=== PATIENT | female | born 1990 | race Hispanic/Latino ===

== ENCOUNTER 2017-11-30 19:19 | Inpatient (IN) | payer SELFPAY ==
[2017-11-30 19:50] VITALS: BMI 29.7
[2017-11-30] MEDS ORDERED: Ondansetron HCl/PF 4 MG/2 ML Vial IVP PRN (21:31)
[2017-11-30] MEDS ORDERED: Lactated Ringer's 1,000 ML IV SCH (21:45)
[2017-11-30] MEDS ORDERED: Azithromycin 250 MG TAB PO SCH (21:45)
[2017-11-30] MEDS: metroNIDAZOLE 500 MG TAB PO SCH (22:16)
[2017-11-30] MEDS: Lactated Ringer's 1,000 ML IV SCH (22:46)
[2017-11-30] MEDS: Acetaminophen 500 MG TAB PO PRN (23:06)
[2017-11-30] MEDS: Ampicillin 2 GM in Sodium Chloride 0.9% 100 ML IVPB SCH (23:34)
--- NOTE | 2017-12-01 00:11 | ULT ---
ULTRASOUND OB LIMITED: 11/30/17 HISTORY: Incompetent cervix. COMPARISON: None. FINDINGS: The cervix is short measuring just over 1 cm. There is funneling of the internal os with the foot of the fetus extending into the internal os. Adequate amniotic fluid. The placenta is anterior. The average ultrasound age is 20 weeks, 2 days. Estimated date of delivery of 04/17/18. Estimated weight is 13 oz, 74th percentile. Biparietal diameter 4.47 cm 19 week, 4 day 19th percentile Head circumference 17.66 cm 20 week, 1 day 36th percentile Abdominal circumference 15.56 cm 20 week, 5 day 39th percentile Femur length 3.55 cm 21 week, 2 day 75th percentile Heart rate documented at 157 beats per minute. IMPRESSION: Incompetent cervix measuring approximately 1.5 cm with funneling of the internal os with the foot of the fetus extending through the internal os. CODE: CR. Sparks in l&d notified of findings at 12:10 am. POS: SHEILA
--- NOTE | 2017-12-01 01:11 | HP ---
DATE OF SERVICE: 11/30/2017 PRIMARY FILLER AND TRIMMER: Justine Burgess MD CHIEF COMPLAINT: Vaginal bleeding. HISTORY OF PRESENT ILLNESS: The patient is a 27-year-old, G1, P0 female with an intrauterine pregnan cy at 20 weeks and 2 days, presenting to labor and delivery complaining of vaginal bleeding and cramp ing. She reports that she has been having some cramping since Wednesday. She says it is in her back, s eems to be associated more with activity and movement. The patient reports it lasts about seconds at a time and is irregular. She reports when she got up today from bed, she noticed bleeding when she wiped and came here for evaluation. The patient reports she was last seen by Dr. Burgess yesterday an d had a normal visit. The patient reports that her discharge has been copious and that she describes it as very mucousy. The patient denies any recent illness, fever, fall, headache, chest pain, short ness of breath, nausea, vomiting, diarrhea. She does report constipation. Denies any new rashes. R eports low back pain, vaginal bleeding, and discharge. Denies urinary urgency or frequency. The pat ient does report a history of bacterial vaginosis prior to the . PAST MEDICAL HISTORY: Negative. PAST SURGICAL HISTORY: Negative. OBSTETRIC HISTORY: This is her first . SOCIAL HISTORY: Denies drug, alcohol, or tobacco use. ALLERGIES: No known drug allergies. MEDICATIONS: vitamins. OBSTETRICAL LABORATORY DATA: RPR is nonreactive. GC and chlamydia are negative. Hepatitis B surfac e antigen is nonreactive. HIV is nonreactive. She is rubella nonimmune. Blood type is not availabl e. REVIEW OF SYSTEMS: Per HPI. PHYSICAL EXAMINATION: VITAL SIGNS: Blood pressure 131/71, heart rate of 110, saturating 98% to 100% on room air, temperatu re 98.5, respiratory rate 18. GENERAL: She appears to be in no acute distress. She is alert and oriented, cooperative, and pleasa nt to interact with. HEAD: Normocephalic, atraumatic. LUNGS: Clear to auscultation bilaterally. HEART: Regular rate and rhythm. ABDOMEN: Soft. She does have some tenderness with deviation to the patient's right along the left i nguinal region consistent with ligament pain. She also has some SI joint tenderness to palpation. EXTREMITIES: Nontender, nonedematous. PELVIC: Vulva has some mucousy yellowish discharge seen at the perineum. On speculum exam, visible is a bulging bag. Unable to visualize cervical edges. At this point, a Del Rosario was placed and the uri nary catheter was placed, and the bladder was filled with approximately 600 mL of fluid. The patient had urge to pee, but was comfortable. On repeating the vaginal exam, the bag is still bulging and v isible and the anterior lip of the cervix was identifiable. No other parts of the cervix can be seen . On bedside ultrasound, fetus is in footling breech presentation with the feet passing through the cervical canal into the bulging bag. On report from Dr. Burgess, ultrasound was done last week showin g a closed cervix with no funneling and normal length, and fetus weighing approximately 270 grams. F etal heart tones today were in the 140s. ASSESSMENT AND PLAN: The patient is a 27-year-old primip with intrauterine at 20 weeks and 2 days with a dilated cervix and a bulging amniotic sac into the vaginal canal. The bag is fairly t aut. There does not appear to be much cervical tissue at this time available for a heroic cerclage. I did discuss the poor prognosis with the family and gave their options of expectant management vers us attempt at heroic cerclage. We did discuss the bleak prognosis with an extremely low probability of making it to viability. Dr. Justine Burgess has been notified by phone, where this patient's case was discussed. The patient and her family will be considering their options and tomorrow can give us th eir preferences. In the meantime, the patient will be placed in Trendelenburg and placed on antibiot ics for latency. Should the patient decide expectant management, the patient can likely go home coco rrow with a course of oral antibiotics. Should she desire a heroic cerclage, the patient has been gi andrew the expectation of waiting for at least 24 hours before deciding to attempt. We did discuss that there is a strong possibility that this bag given how taut it is would not tolerate manipulation wel l and may likely rupture causing delivery imminent. Dr. Burgess will be taking over management tomorr ow. Should the patient decide surgical management, we would be happy to be consulted back to be invo lved in the patient's care.
[2017-12-01] MEDS: Zolpidem Tartrate 5 MG TAB PO PRN (01:37)
[2017-12-01] MEDS: Acetaminophen 500 MG TAB PO PRN (06:26)
[2017-12-01] MEDS: Ampicillin 2 GM in Sodium Chloride 0.9% 100 ML IVPB SCH ×3 (06:33→18:04)
[2017-12-01] MEDS ORDERED: Acetaminophen/Codeine 30-300mg Tablet PO PRN (06:47)
[2017-12-01] MEDS: Lactated Ringer's 1,000 ML IV SCH ×2 (09:10→18:04)
[2017-12-01] MEDS: Butorphanol Tartrate 1 MG/ML VIAL SLOW IVP PRN ×4 (09:14→22:04)
[2017-12-01] MEDS: Azithromycin 250 MG TAB PO SCH (09:18)
[2017-12-01] MEDS: metroNIDAZOLE 500 MG TAB PO SCH ×3 (09:20→20:35)
--- NOTE | 2017-12-01 09:55 | PDOC.APC ---
Antepartum Consult S: 27 y/o G1 at 20w3d, patient of Dr. Burgess, admitted last night for incompetent cervix. She continues to have some vaginal bleeding that appears slightly watery and is having some cramping today. Pain intermittently rated 8/ 10. ROS neg for HEENT, CV, pulm, GI, , neuro, psych, skin, musculoskeletal, or constitutional symptoms other than mentioned above. O: AFVSS Gen - AAO, NAD Abd - soft, NTTP SSE - small amount of watery blood pooled in the vaginal vault. Amniotic bag appears taught with foot visible moving inside. Blood cleared out and speculum reinserted with no reaccumulation of fluid. Small blood clot present. Anterior lip of cervix visible but small. A/P: Patient and her would like to do everything possible to save the . Although blood appeared slightly watery, SROM cannot be confirmed at this time. Continue expectant management and antibiotics. Cerclage scheduled for tomorrow morning after examination by Dr. Carmona. Consents will be signed today. Pain medication ordered. Labs: Ante Labs Blood Type O POSITIVE 11/30/17 22:15
[2017-12-01] MEDS: Cyclobenzaprine 10 MG TAB PO PRN ×2 (12:40→20:54)
[2017-12-02] MEDS: Butorphanol Tartrate 1 MG/ML VIAL SLOW IVP PRN ×3 (01:20→23:22)
[2017-12-02] MEDS: Ampicillin 2 GM in Sodium Chloride 0.9% 100 ML IVPB SCH ×2 (01:20→06:10)
[2017-12-02] MEDS: Lactated Ringer's 1,000 ML IV SCH (03:36)
[2017-12-02] MEDS ORDERED: Lidocaine 1% (PF) 30 ML VIAL ONE (09:40)
[2017-12-02] MEDS ORDERED: Fentanyl 100 MCG/2 ML VIAL ONE (09:50)
[2017-12-02] MEDS ORDERED: Famotidine/PF 20 mg/2ml Vial ONE (09:50)
[2017-12-02 09:54] LABS: #Lymphocytes 1.5 thou/uL (1.20-3.40); #Neutrophils 11.1 thou/uL (1.40-6.50); %Basophils 0.1 % (0.0-1.0); %Eosinophils 0.3 % (0.0-10.0); %Neutrophils 81.6 % (42.0-75.0); Hemoglobin 10.8 g/dL (12.0-16.0); Mean Corpuscular HGB CONC 35.8 g/dL (32.0-36.0); Mean Corpuscular Hemoglobin 32.8 pg (27.0-31.0); Mean Corpuscular Volume 91.6 fL (78.0-98.0); Mean Platelet Volume 8.2 fL (7.4-10.4); Platelet Count 156 thou/uL (130-400); RBC Distribution Width 11.7 % (11.5-14.5); Red Blood Cell (RBC) Count 3.29 mill/uL (4.20-5.40); White Blood Cell (WBC) Count 13.6 thou/uL (4.8-10.8)
[2017-12-02] MEDS ORDERED: Ondansetron HCl/PF 4 MG/2 ML Vial ONE (10:50)
[2017-12-02] MEDS ORDERED: Succinylcholine Chloride 20 MG/ML 10 ml SYRINGE FS ONE (10:50)
[2017-12-02] MEDS ORDERED: Metoclopramide HCl 10 MG/2 ML VIAL ONE (10:50)
[2017-12-02] MEDS ORDERED: PROPOFOL 200 MG/20 ML VIAL ONE (10:50)
--- NOTE | 2017-12-02 14:45 | OP ---
DATE OF PROCEDURE: 12/02/2017 PREOPERATIVE DIAGNOSES: 1. Intrauterine at 20 weeks and 4 days. 2. Incompetent cervix with bulging membranes. 3. Vaginal bleeding. POSTOPERATIVE DIAGNOSES: 1. Intrauterine at 20 weeks and 4 days. 2. Incompetent cervix with bulging membranes. 3. Vaginal bleeding. PROCEDURE: Exam under anesthesia. ANESTHESIA: General. SURGEON: Bonifacio Carmona M.D. COUNTS: Correct. CONDITION: Stable to recovery room. COMPLICATIONS: None. SPECIMENS: None. INDICATIONS FOR PROCEDURE: The patient is a 27-year-old G1, P0 female with an intrauterine at 20 weeks and 4 days, who was admitted to the hospital with a diagnosis of incompetent cervix and bulging membranes. The patient after being placed on antibiotics for 24 hours was brought to the ope rating room after counseling expectant versus surgical management and the patient has opted to an att empt at a heroic cervical cerclage. The patient was counseled of the low possibility of success and also counseled the risk of rupture of membranes, labor, vaginal bleeding, infection and failure. DESCRIPTION OF PROCEDURE: The patient was taken to the operating room where she was placed under gen eral anesthesia and placed in dorsal lithotomy position in [facility]. She was prepared and drap ed in normal sterile fashion. Attention was placed vaginally with an operative speculum. The Del Rosario catheter was in place and the bladder was backfilled with approximately 500 mL of fluid. Operative s peculum was then used to examine the vaginal canal. The bulging membranes were noted to be more clos er to the introitus and more friable in appearance than the day prior. There is no palpable cervix o r visible. There were feet clearly visible at the boundaries of this amniotic sac. The decisi on at this time was then made to empty the bladder and it was noted that this amniotic sac came to th e level of the hymen with accompanying feet. Given the extent of her bulging membranes, the pr esence of parts and the vaginal bleeding that was occurring, decision at this time was to abort any attempt for cervical cerclage. The patient was taken out of lithotomy position and then taken t o recovery room in stable condition.
[2017-12-03] MEDS: Lactated Ringer's 1,000 ML IV SCH ×4 (03:32→14:33)
[2017-12-03] MEDS: Butorphanol Tartrate 1 MG/ML VIAL SLOW IVP PRN ×2 (06:00→11:38)
[2017-12-03] MEDS: Azithromycin 250 MG TAB PO SCH (08:52)
[2017-12-03] MEDS: metroNIDAZOLE 500 MG TAB PO SCH (08:52)
[2017-12-03] MEDS: Ampicillin 2 GM in Sodium Chloride 0.9% 100 ML IVPB SCH (08:53)
[2017-12-03] MEDS ORDERED: AMOXicillin 250 MG CAP PO SCH (21:00)
[2017-12-03] MEDS: Docusate 100 MG CAP PO PRN (21:17)
[2017-12-04] MEDS: Zolpidem Tartrate 5 MG TAB PO PRN (00:31)
--- NOTE | 2017-12-05 09:42 | PRG ---
DATE OF SERVICE: 12/05/2017 PRIMARY OB: Dr. Justine Burgess. HISTORY OF PRESENT ILLNESS: The patient is a 27-year-old G1, P0 female with an intrauterine pregnanc y at 21 weeks, diagnosed with incompetent cervix. The patient has been here in Labor and Delivery wi th expectant management, as the patient is very uncomfortable going home under her current situation. Yesterday, by ultrasound, it was confirmed almost incomplete fetus is in the vaginal vault with lit tle to no fluid visible. Heart rate still viable in the 140s to 150s. The patient denies this morni ng any pain, any fever, any sickness, or any bleeding. PHYSICAL EXAMINATION: VITAL SIGNS: Today, blood pressure is 111/60, heart rate of 81, respiratory rate of 16, temperature 98.6. GENERAL: She appears to be in no acute distress. She is alert and oriented and cooperative and plea anyi to interact with. ABDOMEN: Soft, nontender to palpation. EXTREMITIES: Nontender with SCDs in place. ASSESSMENT AND PLAN: The patient is a 27-year-old G1, P0 female with an intrauterine at 21 weeks with an inevitable, nonviable delivery imminent. The patient has self-induced bedrest and con tinuous Trendelenburg, as she is fearful of causing delivery of this baby. We did explain yesterday after showing her the ultrasound the gravity of her situation and was able to demonstrate the locatio n of the baby outside the uterus in the vaginal vault. Dr. Justine Burgess will be returning tomorrow an jacob will be resuming care.
[2017-12-05] MEDS: Docusate 100 MG CAP PO PRN (17:08)
[2017-12-05] MEDS: Acetaminophen 500 MG TAB PO PRN (17:17)
[2017-12-05 19:04] LABS: Chlamydia by PCR Inconclusive (NotDetected); GC by PCR Inconclusive (NotDetected)
[2017-12-05] MEDS ORDERED: Magnesium Citrate 300 ML BOT PO PRN (21:10)
[2017-12-06] MEDS ORDERED: NS / Oxytocin 40 units/1000ml 0 ML ONE (11:13)
[2017-12-06] MEDS: Misoprostol 200 MCG TAB ONE (12:02)
[2017-12-06] MEDS: Docusate 100 MG CAP PO PRN (13:29)
[2017-12-06] MEDS: Butorphanol Tartrate 1 MG/ML VIAL SLOW IVP PRN (14:32)
[2017-12-06] MEDS ORDERED: Misoprostol 200 MCG TAB ONE (14:44)
[2017-12-06] MEDS ORDERED: Misoprostol 200 MCG TAB PO SCH (15:00)
[2017-12-06] MEDS ORDERED: Fentanyl 100 MCG/2 ML VIAL ONE (15:44)
[2017-12-06] MEDS ORDERED: CEFAZOLIN 2 GM in Sodium Chloride 0.9% 100 ML IVPB SCH (15:45)
--- NOTE | 2017-12-06 15:47 | PDOC.EVN ---
Event Note - Event Note Event Note: I was called to the delivery by Dr. Burgess per parent request as discussed with Dr. Yap to confirm baby was visually consistent with stated gestational age. Mother asked if there was anything that could be done for the patient since she was now 21 weeks. We discussed that at 21 weeks the lungs, kidneys and other organs are underdeveloped and would not be compatible with watermaster survival. I explained that the baby still had a heartbeat and would likely be born moving and trying to breath and this was to be expected. Dr. Burgess planned to place the baby directly onto mom's abdomen after delivery. I asked if mom wanted a account executive key accounts or beet worker present and the hospital official was called. At delivery visualization demonstrated an extremely premature baby with thin, gelatinous skin, prominent veins and what appeared to be fused eyes. I let both parents and Dr. Burgess know that the baby's physical appearance by visualization only was consistent with a previable fetus at the stated gestational age.
[2017-12-06] MEDS ORDERED: CEFAZOLIN/Water 2 GM/20 ML SYRINGE SLOW IVP SCH (16:00)
[2017-12-06] MEDS ORDERED: Ondansetron HCl/PF 4 MG/2 ML Vial IVP PRN ×2 (17:08→18:56)
[2017-12-06] MEDS ORDERED: Promethazine HCl 25 MG/ML VIAL SLOW IVP PRN (17:08)
[2017-12-06] MEDS ORDERED: Promethazine HCl 25 MG/ML VIAL IM PRN (17:08)
[2017-12-06 17:32] LABS: Hemoglobin 8.9 g/dL (12.0-16.0)
[2017-12-06] MEDS ORDERED: HYDROcodone/Acetaminophen 5/325 mg Tablet PO PRN ×2 (18:56)
[2017-12-06] MEDS ORDERED: Tranexamic Acid 1,000 MG in Sodium Chloride 0.9% 250 ML 250 ML IVPB SCH (18:56)
[2017-12-06] MEDS ORDERED: Bisacodyl 10 MG SUPP PR PRN (18:56)
[2017-12-06] MEDS ORDERED: Preparation H Ointment 28 GM TUBE PR PRN (18:56)
[2017-12-06] MEDS ORDERED: Adacel (T-DAP) 0.5 ML VIAL IM ONE (18:56)
[2017-12-06] MEDS ORDERED: Milk Of Magnesia 30 ML UDCUP PO PRN (18:56)
[2017-12-06] MEDS ORDERED: NS / Oxytocin 40 units/1000ml 1,000 ML IV SCH (18:56)
[2017-12-06] MEDS: Docusate Calcium (SURFAK) 240 MG CAP PO SCH (21:20)
[2017-12-06] MEDS: Tranexamic Acid 650 MG TAB PO SCH (21:24)
[2017-12-06] MEDS: Ibuprofen 800 MG TAB PO SCH (22:00)
--- NOTE | 2017-12-06 23:48 | OP ---
DATE OF OPERATION: 12/06/2017 TIME OF SERVICE: 1630 hours. PREOPERATIVE DIAGNOSES: A 20-week incompetent cervix rupture of membranes, spontaneous vaginal deliv adam with retained placenta. POSTOPERATIVE DIAGNOSES: A 20-week incompetent cervix rupture of membranes, spontaneous vaginal deli very with retained placenta. PROCEDURE: Exam under anesthesia and D&C . SURGEON: Bart Sauceda M.D. ANESTHESIA: General endotracheal, Joel Ghosh M.D. ESTIMATED BLOOD LOSS: 400 mL intraoperative, approximately 750-800 preoperatively, estimated total b lood loss including delivery 6828-1224 mL. DRAINS: Del Rosario to gravity. MEDICATIONS: Two grams Ancef presurgical. DVT PROPHYLAXIS: SCDs. OPERATIVE FINDINGS: 1. Placenta noted at the edge of dilated cervix removed with gentle traction. 2. Sharp curettings, large curette with small amount of retained placental membrane. 3. No evidence of uterine perforation. 4. Much reduced bleeding consistent with normal state at the end of the procedure. DISPOSITION: To the recovery room in good condition. DESCRIPTION OF OPERATIVE PROCEDURE: The patient was taken to the operating room where general endotr acheal anesthesia without difficulty. She was prepped and draped in candy canes. Weighted speculum placed in the vagina and right angle retractor placed anteriorly. Her bladder was drained with a Fol ey catheter. Large amount of clot was encountered in the vagina which was included in the estimated blood loss for the procedure. Once this was suctioned out, the placenta was recognized and grasped w ith two ring forceps with a steady gentle traction. It was removed and what seemed to be intact l[place] er and sent for pathology. The cervix was grasped at 12:00 using a ring forceps gently and using a [employer]ha [employer] curette, the uterus was scraped circumferentially, especially at the 3-6 o'clock position , significant amount of membranes and a small amount of tissue was encountered and removed. This was continued circumferentially until there was no further removal of membranes, bleeding, decreased sig nificantly after this. Ring forceps was removed from the cervix and no bleeding was noted. Speculum and retractor were removed. The Del Rosario was continued. The patient was awakened, extubated, and take n to the recovery room in good condition. In the recovery room, the patient will receive a hematocrit to see where she stands now. We will jeremy n on repeating that in the morning. We will go ahead and type and cross the patient for one unit, sh e may need a unit of PRBCs. We will administer 1 gram of TXA, IV piggyback in recovery room and then initiate oral TXA overnight. We will continue quantitative blood loss measurement on the pediatric floor where the patient will be going and this was communicated to the nursing staff. Ope rative findings were communicated with Dr. Justine Burgess.
--- NOTE | 2017-12-07 00:24 | PRG ---
DATE OF SERVICE: 12/06/2017 TIME OF SERVICE: 1540 SUBJECTIVE: Patient is now approximately 2.5 to 3 hours post-delivery. She received Cytotec per rec ashley as well as orally. The umbilical cord avulsed at approximately 1430. On exam, her cervix was st ill dilated to approximately 4-5 cm, placenta could be palpated; however, I cannot tease it out with ring forceps or a digital exam. The patient had EBL of approximately 750-800, post-delivery. PHYSICAL EXAMINATION: Vital signs are stable with pulses elevated at 105, blood pressure is 96/58. LABORATORY DATA: Starting hematocrit was 30.2%. IMPRESSION: Retained products of conception/placenta status post second trimester . PLAN: We will proceed to the OR with a general anesthetic and Ancef and sequential compression devic es for exam under anesthesia with D&C of retained placenta. The patient's care plan discussed with Dr. Justine Burgess, the patient's primary obstetric provider.
[2017-12-07] MEDS ORDERED: Zolpidem Tartrate 5 MG TAB PO PRN (01:32)
[2017-12-07 05:42] LABS: Hemoglobin 7.9 g/dL (12.0-16.0); Mean Corpuscular Hemoglobin 30.4 pg (27.0-31.0); Mean Platelet Volume 7.3 fL (7.4-10.4); Platelet Count 184 thou/uL (130-400); RBC Distribution Width 13.2 % (11.5-14.5); White Blood Cell (WBC) Count 12.5 thou/uL (4.8-10.8)
[2017-12-07] MEDS: Ibuprofen 800 MG TAB PO SCH (06:09)
[2017-12-07] MEDS ORDERED: Ferrous Sulfate 325 MG TAB PO SCH (08:00)
[2017-12-07] MEDS: Docusate Calcium (SURFAK) 240 MG CAP PO SCH (08:43)
[2017-12-07] MEDS: Tranexamic Acid 650 MG TAB PO SCH (08:43)
[2017-12-07 09:22] VITALS: BP 99/56; TEMP 98
--- NOTE | 2017-12-07 10:21 | DN ---
DATE OF DELIVERY: 12/06/2017 DIAGNOSIS: A 21 week 1 day intrauterine in labor secondary to incompetent cervix with a no nviable, but live baby. PROCEDURE IN DETAIL: The patient had been admitted on 11/30/2017 complaining of some small amount of vaginal bleeding. On speculum exam, it was noted that her cervix was completely dilated with a bulg ing bag. The patient had been placed in Trendelenburg started on IV antibiotics, IV fluids, and allo wed time to rest. Noted she is having no minimal bleeding and no further complaints or pain. After approximately 24 hours with extensive counseling, the patient regarding the option, she was taken to the operating room by Dr. Carmona with attempts to place a cerclage, but noted that the cervix was mi nimal in amount and unable to complete the surgery, so subsequently transferred back to [facility] and options have been discussed. The patient opted for complete bed rest. Antibiotics had bee n discontinued. She continued to do very well and remained afebrile, although she did continue to lomax ve some small amount of bright red bleeding which was then followed by some watery type reddish disch arge. On speculum exam, it was noted that she seemed to be having some leakage of fluid through the amniotic membranes, although there was no actual rupture seen and the baby's feet were visible in the amniotic sac bulging into the vaginal canal. All of this has been discussed extensively with the clive khanna as well as the fact that the baby is nonviable at this time and options were discussed with her in the presence of the hospital manager as well as myself on multiple occasions with full family and ronald powers present. On 12/05/2017, the patient had continued to have some leakage of fluid and an ultraso und was performed by Dr. Carmona, which noted minimal fluid in the amniotic sac with the entire baby in the amniotic sac in the vaginal vault. The baby continued to have strong heart tones with the las t check at 10:00 a.m. on the day she delivered. At approximately 11:30, the patient felt that she lomax d an urge to push and noted that the baby was at the introitus. No membranes were identified. The p kiera underwent a normal spontaneous vaginal delivery with 2 pushes, which delivered a nonviable, bu t live male baby. Neonatology was present and noted the baby to be consistent with dates and nonviable. At the patient's request, the cord was clamped and cut by the father and the was w rapped in a warm blanket and handed to the care of the mother and father for comfort measures. A cla mp remained on the umbilical cord, which was short and noted to be approximately 2 cm from the introi tus. There was no bleeding at delivery and noted that the placenta remained adhered to the uterine w all. An 800 mcg of Cytotec were placed and the patient was allowed to be comfortable and provide com fort care for her infant. Noted that the baby was pronounced after visitation by as w ell as visitation and , the baby was pronounced at 12:37 p.m. Parents were coping very well and the case was discussed with Dr. Sauceda as there was minimal bleeding at this time, allowed time for separation of the placenta. It was noted that approximately 2 hours later, she began to hav e some increased bleeding. The cord became detached from the placenta. The placenta did not deliver spontaneously and was not able to be delivered manually due to patient discomfort. The patient cons ented to operative delivery of the placenta. She was taken to operating room by Dr. Sauceda with the placenta was delivered manually and the patient underwent curette with some adhesed membranes removed at that time. Noted that total quantity of blood loss at approximately 1500 mL. The patient was ta bora to recovery room and subsequently transferred to the floor and did very well. Noted she continue d to have very good support from the medical staff, nursing staff as well as her family and recovered on the floor without difficulty.
[2017-12-07] MEDS: Lactated Ringer's 1,000 ML IV SCH ×3 (10:55→10:57)
[2017-12-07] MEDS: Misoprostol 200 MCG TAB ONE (10:56)
--- NOTE | 2017-12-07 12:26 | DIS ---
DATE OF ADMISSION: 12/01/2017 DATE OF DISCHARGE: 12/07/2017 DISCHARGE DIAGNOSES: 1. A 20-week 2-day live, but nonviable baby with incompetent cervix and complete dilatation at time of admission. 2. 21 week 2-day nonviable but live normal spontaneous vaginal . 3. Anemia secondary to blood loss. HOSPITAL COURSE: Sravani is a 27-year-old female who presented to Labor and Deliver y on 11/30/2017 complaining of a small amount of vaginal bleeding. Speculum exam by Dr. Carmona not ed that the cervix was completely dilated with bulging membranes and baby seat visible in the amnioti c sac. The patient was placed in Trendelenburg. A Del Rosario catheter was placed. Bladder was filled an d noted there was only a very small amount of anterior lip of the cervix. Options were discussed wit h the patient and she was requesting all measures to be taken if possible. After approximately 36 ho urs of rest in Trendelenburg. She was taken to the operating room by Kristine with attempts at cervic al cerclage, but this was noted due to minimal amount of cervix with only the anterior lip visible th at a cerclage was unable to be placed. She was transferred back to Labor and Delivery for observatio n. All options were discussed with patient with plans for observation and management. Antibiotics h ad been started initially, but these were discontinued. She remained afebrile throughout her hospita l stay. Over the next several days. She had a small amount of bright red bleeding accompanied with some bloody watery type discharge. Membranes were noted to appear intact, but felt she probably had a high leak or possible transudate of fluid coming through the amniotic sac. On 12/05/2017 an ultras ound was performed which revealed a complete amniotic sac and fetus in the vaginal vault with minimal to no fluid present. Noted the baby continued to have good heart tones up until 10:00 a.m. on 12/06. At approximately 11:00 a.m. that day, she complained of an urge to push, noted that the baby was at the introitus. She underwent a normal spontaneous vaginal delivery of a nonviable, but live i nfant at 21 weeks and 4 days male baby. The cord was clamped and cut at the request of the parents. Neonatology was present. Noted the baby to be nonviable and unable to resuscitate and at request th e parents the baby was handed to the care of the parents for comfort care. Noted the baby was delive red at 12:00 p.m. and at 12:37 p.m. after visitation with senior living sales counselor and the decision with ___ _ and anointing of the baby and parents. They continued to do very well. It was noted that the plac enta appeared to be retained. She received 800 mcg of Cytotec vaginally. She remained afebrile with minimal bleeding at that time, was allowed time for separation, after approximately 2 hours bleeding had increased and cord detached and unable to deliver the placenta manually. Consents were obtained . The patient was taken to the operating room by Dr. Sauceda for removal of placenta which was able t o be carried out manually as well as curet noted with some retained fragments of placenta. Quantitat sp blood loss noted to be approximately 1500 mL. The patient tolerated this well and was transferre d to recovery room and subsequently to the floor. She had minimal bleeding. She did well through th e night, remained afebrile. Vital signs were stable. Noted her initial hemoglobin at 10.8, which de creased to 8.9 on 12/06/2017 at 5:00 p.m. and the following morning 12/07/2017 at 7.9 after she recei rachel transfusion of 1 unit of packed cells due to the amount of blood loss and tachycardia noted on th e evening of surgery. The patient was doing well, ready for discharge on 12/07/2017. Support had be en given extensively by medical staff as well as nursing staff and family. She is to be discharged h ome in good condition. DISCHARGE MEDICATIONS: Include vitamins and ferrous sulfate b.i.d. The patient is to follow up in my office in 2 weeks or sooner as needed.
== END 2017-12-07 12:00 | disposition home or self-care (01) | DRG 767 ==
LOC: L&D/OP 19:19 → L&D 12-01 07:05 → 3SW 12-06 17:58
PROVIDERS: ADMIT Family Medicine; ATTEND Family Medicine
PROC: 10E0XZZ Delivery of Products of Conception, External Approach (ICD-10-PCS; principal; 2017-12-06)
PROC: 10D17Z9 Manual Extraction of Products of Conception, Retained, Via Natural or Artificial Opening (ICD-10-PCS; 2017-12-06)
DX: O34.32 Maternal care for cervical incompetence, second trimester (principal); O72.0 Third-stage hemorrhage; D62 Acute posthemorrhagic anemia; Z37.0 Single live birth; Z3A.20 20 weeks gestation of pregnancy; O42.912 Preterm premature rupture of membranes, unspecified as to length of time between rupture and onset of labor, second trimester
CPT/HCPCS: 36415; 36430; 51702; 76815; 85014; 85018; 85025; 85027; 86850; 86900; 86901; 87480; 87491; 87510; 87591; 87660; 88305; 99285; A4216; J0290; J0595; J2001; J2405; J2704; J2765; J3010; J7050; P9016; S0028